=== PATIENT | male | born 1995 | race Caucasian/White ===

== ENCOUNTER 2020-08-10 00:30 | Emergency (ER) | payer OTHER ==
[2020-08-10] MEDS ORDERED: METHYLPREDNISOLONE INJ 125 MG/2 ML SDV IV ONE (00:39)
[2020-08-10] MEDS ORDERED: EPINEPHRINE INJ/PF 1 MG/1 ML AMPULE SUBCUT ONE (00:39)
[2020-08-10] MEDS ORDERED: DIPHENHYDRAMINE HCL 50 MG/ML VIAL IV ONE (00:39)
[2020-08-10] MEDS ORDERED: FAMOTIDINE INJ/PF 20 MG/2 ML SDV IV ONE (00:39)
[2020-08-10] MEDS ORDERED: RINGERS SOLUTION,LACTATED 1,000 ML IV ONE (00:40)
--- NOTE | 2020-08-10 00:40 | ER Document Report ---
ED General - General Chief Complaint: Shortness Of Breath Stated Complaint: POSSIBLE ALLERGIC REACTION/SOB Time Seen by Provider: 08/10/20 00:38 Mode of Arrival: Ambulatory - HPI Notes: 24-year-old male presents with allergic reaction. Patient states he is allergic to fire ants. He was bit on his legs about 30-minute prior to arrival. He states that he took some Benadryl, unable to recall how much. He states he is feeling shortness of breath. He has not been prescribed an EpiPen before. HPI limited due to acuity of the situation. Past Medical History - Social History Smoking Status: Unknown if Ever Smoked Family History: Reviewed & Not Pertinent Review of Systems - Review of Systems -: Yes ROS unobtainable due to patient's medical condition Respiratory: Short of breath Skin: Rash Physical Exam - Vital signs Vitals: Temp 98.3 F 08/10/20 00:30 - General General appearance: Alert - HEENT Head: Normocephalic, Atraumatic Extraocular movements intact: Yes Pupils: PERRL Mouth/Lips: No: Angioedema Neck: Other - Phonation normal, no stridor - Respiratory Respiratory status: Tachypnea Breath sounds: Normal. No: Wheezing - Cardiovascular Rhythm: Tachycardia Heart sounds: Normal auscultation - Abdominal Tenderness: Nontender - Extremities General lower extremity: Other - Insect bites to right lower leg with surround ing erythema - Neurological Neuro grossly intact: Yes Cognition: Normal Orientation: AAOx4 - Psychological Associated symptoms: Anxious - Skin Skin Temperature: Warm Skin Color: Other - Hives present to legs, arms and chest Course - Re-evaluation Re-evalutation: 24-year-old male here with allergic reaction following fire ant bites. He re ports shortness of breath, his lungs are clear and he has no stridor, there is no swelling of the mouth. Does have hives. No vomiting/diarrhea. He is mentating appropriately. Will start with IM epi, Benadryl and Pepcid. Provide a dose of Solu-Medrol for the late effects of allergic reaction. Monitor and reassess. 08/10/20 02:04 Tachycardia has resolved. Current blood pressure 136/50. Sats 98% on room air. 08/10/20 02:46 Urticaria has resolved. Patient a bit drowsy from the effects of Benadryl, however friend at bedside is able to take him home. No further tachycardia. Will prescribe a steroid burst and EpiPen. Return precautions given, patient stable at time of discharge. - Vital Signs Vital signs: Temp Pulse Resp BP Pulse Ox 98.3 F 16 137/47 H 94 08/10/20 00:30 08/10/20 02:31 08/10/20 02:31 08/10/20 02:31 Discharge - Discharge Clinical Impression: Allergic reaction to insect bite Condition: Stable Disposition: HOME, SELF-CARE Additional Instructions: Please begin short burst of steroids. I have also prescribed you an EpiPen, use this if you ever have the sensation of shortness of breath or throat closing again. Your hives may return, you may continue to use Benadryl, can use 50mg at a time. Return to the emergency department any concerning worsening symptoms. Prescriptions: Prednisone [Deltasone 20 mg Tablet] 2 tab PO DAILY 5 Days #10 tablet Epinephrine [Epipen] 0.3 mg IJ ONCE PRN #1 auto.injct PRN Reason:
[2020-08-10 02:54] VITALS: BP 155/59
== END 2020-08-10 03:01 | disposition home or self-care (01) ==
LOC: ER 00:30
DX: T63.421A Toxic effect of venom of ants, accidental (unintentional), initial encounter (principal); L50.9 Urticaria, unspecified; R06.02 Shortness of breath
CPT/HCPCS: 99284; 96372; 96361; 96374; 96375; J1200; J0171; J2930; J7120; S0028